=== PATIENT | female | born 1965 | race Caucasian/White ===

== ENCOUNTER 2016-09-22 19:32 | Emergency (ER) | payer BC ==
[~2016-09-22] VITALS: Ht 152.4 cm; Wt 62.6 kg
[2016-09-22 20:56] VITALS: BP 105/74
== END 2016-09-22 20:56 | disposition home or self-care (01) ==
LOC: ER 19:37
DX: M25.462 Effusion, left knee (principal)
CPT/HCPCS: 73564-TC; A4606; Z7610